=== PATIENT | female | born 1955 | race American Indian/Alaskan Native ===

== ENCOUNTER 2021-11-17 01:21 | Emergency (ER) | payer MEDICARE ==
[2021-11-17] MEDS ORDERED: ONDANSETRON 4 MG/2 ML INJ IV ONE ×2 (02:16→03:07)
[2021-11-17] MEDS ORDERED: fentaNYL 100 MCG/2 ML INJ IV ONE ×2 (02:16→03:07)
--- NOTE | 2021-11-17 02:23 | Emergency Department Report ---
HPI - General Chief Complaint: Fall Time Seen by Provider: 11/17/21 01:55 - HPI HPI: Room 22 The patient is a 66-year-old female complaining of pain after fall. The patient states Saturday evening she lost her balance and fell between her lawnmower and trailer while in her basement. Patient states that the lawnmower rolled on to her side and pinned her in this position on the ground. Patient states she attempted to call friends to help her out but no one answered. The patient states she fell asleep and this morning at 09: 30 she called 911. EMS came and helped the patient up. Patient states she did not think she had any pain so she wanted to go back to sleep. Patient states she now has pain along her right ribs when she breathes and pain in the right side of her abdomen and hip. Patient states prior to arrival to the emergency department she had 1 black tarry stool and developed nausea vomiting ED Past Medical Hx - Past Medical History Hx Hypertension: Yes Hx Arthritis: Yes Additional medical history: Lupus, kidney stones - Surgical History Past Surgical History?: Yes Additional Surgical History: right knee replacement, left hip replacement, right eye ball removal - has prosthetic, tonsillectomy - Family History Family history: no significant - Social History Smoking Status: Never Smoker Substance Use Type: None (Denies illicit drug use), Alcohol (Occasional) - Medications Home Medications: Home Medications Medication Instructions Recorded Confirmed Last Taken Type HYDROcodone/APAP 5-325 [Trappe 1 - 2 each PO Q6HR PRN #10 tablet 11/17/21 Unknown Rx 5/325] Promethazine [Phenergan] 25 mg PO Q6HR PRN #20 tab 11/17/21 Unknown Rx Promethazine [Phenergan] 25 mg MT Q6HR PRN #5 supp.rect 11/17/21 Unknown Rx ED Review of Systems ROS: Stated complaint: RT HIP & RIB PAIN Other details as noted in HPI Constitutional: no symptoms reported Eyes: denies: eye pain ENT: denies: throat pain Respiratory: no symptoms reported Cardiovascular: denies: chest pain Endocrine: no symptoms reported Gastrointestinal: abdominal pain, nausea, vomiting Musculoskeletal: arthralgia Neurological: headache Physical Exam - Physical Exam Vital Signs: Vital Signs 11/17/21 01:35 Temperature 98.1 F Pulse Rate 86 Respiratory 18 Rate Blood Pressure 176/89 O2 Sat by Pulse 100 Oximetry Physical Exam: GENERAL: The patient is well-developed well-nourished female lying on stretcher holding emesis bag. [] HEENT: Normocephalic. Atraumatic. Extraocular motions are intact. Patient has moist mucous membranes. NECK: Supple. Trachea midline CHEST/LUNGS: Clear to auscultation. There is no respiratory distress noted. HEART/CARDIOVASCULAR: Regular. There is no tachycardia. There is no gallop rub or murmur. ABDOMEN: Abdomen is soft, with discomfort to palpation of the right upper quadrant. There is no abdominal distention. SKIN: There is no rash. There is no edema. There is no diaphoresis. NEURO: The patient is awake, alert, and oriented. The patient is cooperative. The patient has no focal neurologic deficits. The patient has normal speech. GCS 15 MUSCULOSKELETAL: There is no evidence of acute injury. RECTAL: Light Brown stool, guaiac negative ED Course Vital Signs 11/17/21 01:35 Temperature 98.1 F Pulse Rate 86 Respiratory 18 Rate Blood Pressure 176/89 O2 Sat by Pulse 100 Oximetry ED Medical Decision Making - Lab Data Result diagrams: 11/17/21 02:34 11/17/21 02:34 - Radiology Data Radiology results: report reviewed (Right hip x-ray, CT head, CT cervical spine, CT abdomen pelvis, CT chest), image reviewed (Right hip x-ray, CT head, CT cervical spine, CT abdomen pelvis, CT chest) interpreted by me: Right hip x-ray-no acute fracture, no dislocation [facility] [address] [place] [address] XRay Report Signed Patient: JULIET MALCOLM MR#: [id number] : 1955 Acct:[id number] Age/Sex: 66 / F ADM Date: 11/17/21 Loc: ED Attending Dr: Ordering Physician: TOMMY GOODWIN MD Date of Service: 11/17/21 Procedure(s): XR hip 2-3V RT Accession Number(s): [id number] cc: TOMMY GOODWIN MD Fluoro Time In Minutes: RIGHT HIP 3 VIEW(S) INDICATION / CLINICAL INFORMATION: Pain after fall COMPARISON: None available. FINDINGS: BONES / JOINT(S): No acute fracture or subluxation. No significant arthritis. Prior left hip arthroplasty. No displaced fracture of the pelvis. SOFT TISSUES: No significant abnormality. ADDITIONAL FINDINGS: None. IMPRESSION: 1. No acute fracture of the right hip. Signer Name: Gregor Person II, MD Signed: 11/17/2021 3:32 AM Workstation Name: [id number] Transcribed By: BEULAH Dictated By: GREGOR PERSON II, MD Electronically Authenticated By: GREGOR PERSON II, MD Signed Date/Time: 11/17/21331 DD/ 0 TD/TT: Print Cancel [facility] [address] [place] [address] Cat Scan Report Signed Patient: JULIET MALCOLM MR#: [id number] : 1955 Acct:[id number] Age/Sex: 66 / F ADM Date: 11/17/21 Loc: ED Attending Dr: Ordering Physician: TOMMY GOODWIN MD Date of Service: 11/17/21 Procedure(s): CT head/brain wo con Accession Number(s): [id number] cc: TOMMY GOODWIN MD CT HEAD WITHOUT CONTRAST INDICATION / CLINICAL INFORMATION: Fall, possible L.O.C.. TECHNIQUE: CT head was performed without administration of intravenous contrast. All CT scans at this location are performed using CT dose reduction for ALARA by means of automated exposure contr ol. COMPARISON: None available. FINDINGS: CEREBRAL HEMISPHERES: Generalized atrophy and bilateral regions of periventricular white matter hypoattenuation compatible with microvascular ischemia are demonstrated. No midline shift. Basal cisterns patent. HEMORRHAGE: None. CEREBELLUM / BRAINSTEM: No significant abnormality. ORBITS: Right ocular prosthesis. Left orbit demonstrates no acute findings. SOFT TISSUES: No significant abnormality. SKULL: No significant abnormality. PARANASAL SINUSES / MASTOID AIR CELLS: Normal as visualized. ADDITIONAL FINDINGS: None. IMPRESSION: 1. No acute intracranial abnormality. Signer Name: Gregor Person II, MD Signed: 11/17/2021 5:01 AM Workstation Name: [id number] Transcribed By: BEULAH Dictated By: GREGOR PERSON II, MD Electronically Authenticated By: GREGOR PERSON II, MD Signed Date/Time: 11/17/21500 DD/ 9 TD/TT: [address] [address] Cat Scan Report Signed Patient: JULIET MALCOLM MR#: [id number] : 1955 Acct:[id number] Age/Sex: 66 / F ADM Date: 11/17/21 Loc: ED Attending Dr: Ordering Physician: TOMMY GOODWIN MD Date of Service: 11/17/21 Procedure(s): CT cervical spine wo con Accession Number(s): [id number] cc: TOMMY GOODWIN MD CT CERVICAL SPINE WITHOUT CONTRAST INDICATION / CLINICAL INFORMATION: Fall, possible L.O.C.. TECHNIQUE: Axial CT images were obtained through the cervical spine. Sagittal and coronal reformatted images were produced. All CT scans at this location are performed using CT dose red uction for ALARA by means of automated exposure control. COMPARISON: None available. FINDINGS: SKULL BASE: No significant abnormality of the skull base. CRANIOCERVICAL JUNCTION: No significant abnormality of the craniocervical junction. CERVICAL SPINE: Normal alignment with mild to moderate loss of intervertebral disc space throughout the cervical spine. No acute fracture. Mild central stenosis at C3-4 as a result of broad-based posterior disc osteophyte complex. SOFT TISSUES: No significant abnormality of soft tissues or musculature. THYROID: No significant abnormality. UPPER CHEST: No significant abnormality of the visualized chest. ADDITIONAL FINDINGS: None. IMPRESSION: 1. No evidence of acute osseous injury. Degenerative changes as detailed. No obvious severe central stenosis. Signer Name: Gregor Person II, MD Signed: 11/17/2021 5:03 AM Workstation Name: [id number] anscribed By: BEULAH Dictated By: GREGOR PERSON II, MD Electronically Authenticated By: GREGOR PRESON II, MD Signed Date/Time: 11/17/21502 DD/ 050 TD/TT: [address] [address] Cat Scan Report Signed Patient: JULIET MALCOLM MR#: [id number] : 1955 Acct:[id number] Age/Sex: 66 / F ADM Date: 11/17/21 Loc: ED Attending Dr: Ordering Physician: TOMMY GOODWIN MD Date of Service: 11/17/21 Procedure(s): CT chest w con Accession Number(s): [id number] cc: TOMMY GOODWIN MD CT CHEST WITH CONTRAST INDICATION / CLINICAL INFORMATION: Right rib pain after fall. TECHNIQUE: Axial CT images were obtained through the chest after 100 cc Omnipaque [address] scans at this location are performed using CT dose reduction for ALARA by means of automated exposure control. COMPARISON: CT abdomen and pelvis same date. FINDINGS: CHEST LOWER NECK: Soft tissues and musculature of the lower neck demonstrate no significant abnormality. Mild nodular enlargement of the right thyroid lobe. THORACIC AORTA: No significant abnormality. PULMONARY ARTERY:No significant abnormality. HEART: No significant abnormality. CORONARY ARTERY CALCIFICATION: Present -- Mild. MEDIASTINUM / PETE: No significant abnormality. ESOPHAGUS: No significant abnormality. LYMPH NODES: No adenopathy demonstrated within the axilla, pete, or mediastinum. Partially calcified right hilar and right paratracheal lymph nodes. LUNGS: No acute air space or interstitial disease. PLEURA: No pleural effusion. No pneumothorax. TH ORACIC SOFT TISSUES: No significant abnormality of the chest wall or upper thoracic musculature. OSSEOUS STRUCTURES: Moderate right glenohumeral joint degenerative changes. No acute fractures involving bilateral shoulder girdles, rib cage, thoracic spine, or sternum. UPPER ABDOMEN: Please see comparison study for findings. ADDITIONAL CHEST FINDINGS: None. IMPRESSION: 1. No significant abnormality. Signer Name: Gregor Person II, MD Signed: 11/17/2021 5:27 AM Workstation Name: [id number] Transcribed By: BEULAH Dictated By: GREGOR PERSON II, MD Electronically Authenticated By: GREGOR PERSON II, MD Signed Date/Time: 11/17/21526 DD/ 0 TD/TT: [facility] [address] [place] [address] Cat Scan Report Signed Patient: JULIET MALCOLM MR#: [id number] : 1955 Acct:[id number] Age/Sex: 66 / F ADM Date: 11/17/21 Loc: ED Attending Dr: Ordering Physician: TOMMY GOODWIN MD Date of Service: 11/17/21 Procedure(s): CT abdomen pelvis w con Accession Number(s): [id number] cc: TOMMY GOODWIN MD CT ABDOMEN AND PELVIS WITH CONTRAST INDICATION / CLINICAL INFORMATION: Right-sided abdominal pain after fall. TECHNIQUE: Axial CT images were obtained through the abdomen and pelvis after 100 cc Omnipaque [address] scans at this location are performed using CT dose reduction for ALARA by means of automated exposure control. COMPARISON: CT chest same date. FINDINGS: LOWER CHEST: Please reference the comparison study. Findings within the chest. LIVER: No focal lesion. No acute findings. GALLBLADDER / BILE DUCTS: No significant abnormality. Biliary ducts grossly unremarkable. SPLEEN: No significant abnormality. PANCREAS: No significant abnormality. ADRENALS: Minimal adrenal nodularity and/or hyperplasia. KIDNEYS/URETERS: No stones or hydronephrosis. No solid renal lesion. STOMACH / DUODENUM / SMALL BOWEL: The stomach, duodenum, and small bowel demonstrate no significant abnormality. No specific abnormality of the mesentery demonstrated. COLON: Diverticulosis without acute inflammation. APPENDIX: No significant abnormality. PERITONEUM: No free air or free fluid are present within the abdomen or pelvis. LYMPH NODES: No significant adenopathy. AORTA / ARTERIES: No significant abnormality. IVC / VEINS: No significant abnormality. URINARY BLADDER: No significant abnormality. REPRODUCTIVE ORGANS: Partially calcified uterine fibroids. ADDITIONAL ABDOMINAL/PELVIC FINDINGS: None. SKELETAL SYSTEM: Lumbar degenerative changes without evidence of superimposed acute fracture. Osseous structures of the pelvis and bilateral hips appear intact. Prior left hip arthroplasty. Moderate central stenosis L3-4 L4-5 IMPRESSION: 1. No evidence of acute traumatic injury. Nonacute findings as detailed. Signer Name: Gregor Person II, MD Signed: 11/17/2021 5:28 AM Workstation Name: [id number] Transcribed By: BEULAH Dictated By: GREGOR PERSON II, MD Electronically Authenticated By: GREGOR PERSON II, MD Signed Date/Time: 11/17/21527 DD/ 3 TD/TT: - Differential Diagnosis Closed head injury, GI bleed, rhabdomyolysis, hepatic injury, Critical care attestation.: If time is entered above; I have spent that time in minutes in the direct care of this critically ill patient, excluding procedure time. ED Disposition Clinical Impression: Fall, Contusion of rib on right side, Abdominal contusion, Closed head injury, Cervical strain, acute Disposition: 01 HOME / SELF CARE / HOMELESS Is pt being admited?: No Does the pt Need Aspirin: No Condition: Stable Instructions: Contusion, [id number] Additional Instructions: Return to the emergency department should you develop worsening symptoms, inability to tolerate food or liquids, high fever or any other concerns Prescriptions: HYDROcodone/APAP 5-325 [Trappe 5/325] 1 - 2 each PO Q6HR PRN #10 tablet PRN Reason: Pain Promethazine [Phenergan] 25 mg PO Q6HR PRN #20 tab PRN Reason: Nausea Promethazine [Phenergan] 25 mg MT Q6HR PRN #5 supp.rect PRN Reason: Vomiting Referrals: CELIA GREEN MD [Staff Physician] - 3-5 Days Time of Disposition: 05:42
[2021-11-17 03:13] LABS: Basophils # (Auto) 0.1 K/mm3 (0.0-0.1); Basophils % (Auto) 1.1 % (0.0-1.8); Eosinophils % (Auto) 0.2 % (0.0-4.3); Hematocrit 36.6 % (30.3-42.9); Lymphocytes # (Auto) 0.9 K/mm3 (1.2-5.4); Lymphocytes % (Auto) 11.9 % (13.4-35.0); Mean Corpuscular HGB Conc 33 % (30-34); Mean Corpuscular Volume 85 fl (79-97); Monocytes # (Auto) 0.5 K/mm3 (0.0-0.8); Monocytes % (Auto) 5.9 % (0.0-7.3); Platelet Count 264 K/mm3 (140-440); Red Blood Count 4.32 M/mm3 (3.65-5.03); Red Cell Distribution Width 15.4 % (13.2-15.2)
[2021-11-17 03:27] LABS: BUN/Creatinine Ratio 11; Blood Urea Nitrogen 9 mg/dL (7-17); Calcium 10.3 mg/dL (8.4-10.2); Hemolysis Index 5
[2021-11-17 03:36] LABS: INR 0.9 (0.87-1.13)
[2021-11-17 03:37] LABS: Partial Thromboplastin Time 32.6 Sec. (24.2-36.6)
--- NOTE | 2021-11-17 03:37 | XRay Report ---
RIGHT HIP 3 VIEW(S) INDICATION / CLINICAL INFORMATION: Pain after fall COMPARISON: None available. FINDINGS: BONES / JOINT(S): No acute fracture or subluxation. No significant arthritis. Prior left hip arthropl asty. No displaced fracture of the pelvis. SOFT TISSUES: No significant abnormality. ADDITIONAL FINDINGS: None. IMPRESSION: 1. No acute fracture of the right hip. Signer Name: Francis Conway II, MD Signed: 11/17/2021 3:32 AM Workstation Name: [id number]
--- NOTE | 2021-11-17 05:05 | Cat Scan Report ---
CT HEAD WITHOUT CONTRAST INDICATION / CLINICAL INFORMATION: Fall, possible L.O.C.. TECHNIQUE: CT head was performed without administration of intravenous contrast. All CT scans at this location are performed using CT dose reduction for ALARA by means of automated exposure control. COMPARISON: None available. FINDINGS: CEREBRAL HEMISPHERES: Generalized atrophy and bilateral regions of periventricular white matter hypoa ttenuation compatible with microvascular ischemia are demonstrated. No midline shift. Basal cisterns patent. HEMORRHAGE: None. CEREBELLUM / BRAINSTEM: No significant abnormality. ORBITS: Right ocular prosthesis. Left orbit demonstrates no acute findings. SOFT TISSUES: No significant abnormality. SKULL: No significant abnormality. PARANASAL SINUSES / MASTOID AIR CELLS: Normal as visualized. ADDITIONAL FINDINGS: None. IMPRESSION: 1. No acute intracranial abnormality. Signer Name: Francis Conway II, MD Signed: 11/17/2021 5:01 AM Workstation Name: [id number]
--- NOTE | 2021-11-17 05:07 | Cat Scan Report ---
CT CERVICAL SPINE WITHOUT CONTRAST INDICATION / CLINICAL INFORMATION: Fall, possible L.O.C.. TECHNIQUE: Axial CT images were obtained through the cervical spine. Sagittal and coronal reformatted images were produced. All CT scans at this location are performed using CT dose reduction for ALARA by means of automated exposure control. COMPARISON: None available. FINDINGS: SKULL BASE: No significant abnormality of the skull base. CRANIOCERVICAL JUNCTION: No significant abnormality of the craniocervical junction. CERVICAL SPINE: Normal alignment with mild to moderate loss of intervertebral disc space throughout t he cervical spine. No acute fracture. Mild central stenosis at C3-4 as a result of broad-based license examiner ior disc osteophyte complex. SOFT TISSUES: No significant abnormality of soft tissues or musculature. THYROID: No significant abnormality. UPPER CHEST: No significant abnormality of the visualized chest. ADDITIONAL FINDINGS: None. IMPRESSION: 1. No evidence of acute osseous injury. Degenerative changes as detailed. No obvious severe central s tenosis. Signer Name: Francis Conway II, MD Signed: 11/17/2021 5:03 AM Workstation Name: [id number]
--- NOTE | 2021-11-17 05:31 | Cat Scan Report ---
CT CHEST WITH CONTRAST INDICATION / CLINICAL INFORMATION: Right rib pain after fall. TECHNIQUE: Axial CT images were obtained through the chest after 100 cc Omnipaque [address] l [address] scans at this location are performed using CT dose reduction for ALARA by means of automated exp osure control. COMPARISON: CT abdomen and pelvis same date. FINDINGS: CHEST LOWER NECK: Soft tissues and musculature of the lower neck demonstrate no significant abnormality. Mi ld nodular enlargement of the right thyroid lobe. THORACIC AORTA: No significant abnormality. PULMONARY ARTERY:No significant abnormality. HEART: No significant abnormality. CORONARY ARTERY CALCIFICATION: Present -- Mild. MEDIASTINUM / PRINCESS: No significant abnormality. ESOPHAGUS: No significant abnormality. LYMPH NODES: No adenopathy demonstrated within the axilla, princess, or mediastinum. Partially calcified right hilar and right paratracheal lymph nodes. LUNGS: No acute air space or interstitial disease. PLEURA: No pleural effusion. No pneumothorax. THORACIC SOFT TISSUES: No significant abnormality of the chest wall or upper thoracic musculature. OSSEOUS STRUCTURES: Moderate right glenohumeral joint degenerative changes. No acute fractures involv ing bilateral shoulder girdles, rib cage, thoracic spine, or sternum. UPPER ABDOMEN: Please see comparison study for findings. ADDITIONAL CHEST FINDINGS: None. IMPRESSION: 1. No significant abnormality. Signer Name: Francis Conway II, MD Signed: 11/17/2021 5:27 AM Workstation Name: [id number]
--- NOTE | 2021-11-17 05:32 | Cat Scan Report ---
CT ABDOMEN AND PELVIS WITH CONTRAST INDICATION / CLINICAL INFORMATION: Right-sided abdominal pain after fall. TECHNIQUE: Axial CT images were obtained through the abdomen and pelvis after 100 cc Omnipaque [address] scans at this location are performed using CT dose reduction for ALARA by means of automated exposure control. COMPARISON: CT chest same date. FINDINGS: LOWER CHEST: Please reference the comparison study. Findings within the chest. LIVER: No focal lesion. No acute findings. GALLBLADDER / BILE DUCTS: No significant abnormality. Biliary ducts grossly unremarkable. SPLEEN: No significant abnormality. PANCREAS: No significant abnormality. ADRENALS: Minimal adrenal nodularity and/or hyperplasia. KIDNEYS/URETERS: No stones or hydronephrosis. No solid renal lesion. STOMACH / DUODENUM / SMALL BOWEL: The stomach, duodenum, and small bowel demonstrate no significant a bnormality. No specific abnormality of the mesentery demonstrated. COLON: Diverticulosis without acute inflammation. APPENDIX: No significant abnormality. PERITONEUM: No free air or free fluid are present within the abdomen or pelvis. LYMPH NODES: No significant adenopathy. AORTA / ARTERIES: No significant abnormality. IVC / VEINS: No significant abnormality. URINARY BLADDER: No significant abnormality. REPRODUCTIVE ORGANS: Partially calcified uterine fibroids. ADDITIONAL ABDOMINAL/PELVIC FINDINGS: None. SKELETAL SYSTEM: Lumbar degenerative changes without evidence of superimposed acute fracture. Osseous structures of the pelvis and bilateral hips appear intact. Prior left hip arthroplasty. Moderate lacie tral stenosis L3-4 L4-5 IMPRESSION: 1. No evidence of acute traumatic injury. Nonacute findings as detailed. Signer Name: Francis Conway II, MD Signed: 11/17/2021 5:28 AM Workstation Name: [id number]
[2021-11-17 06:49] VITALS: BP 160/70
== END 2021-11-17 06:54 | disposition home or self-care (01) ==
LOC: ED 01:21
DX: S20.211A Contusion of right front wall of thorax, initial encounter (principal); S30.1XXA Contusion of abdominal wall, initial encounter; S09.90XA Unspecified injury of head, initial encounter; S16.1XXA Strain of muscle, fascia and tendon at neck level, initial encounter; I10 Essential (primary) hypertension; M19.90 Unspecified osteoarthritis, unspecified site; W19.XXXA Unspecified fall, initial encounter; Y93.89 Activity, other specified; Y92.89 Other specified places as the place of occurrence of the external cause; Y99.8 Other external cause status
CPT/HCPCS: 36415; 70450; 71260; 72125; 73502; 74177; 80048; 82270; 82550; 85025; 85610; 85730; 86850; 86900; 86901; 96374; 96375; 96376; 99284; J2405; J3010; Q9967

== ENCOUNTER 2021-11-17 08:44 | Emergency (ER) | payer MEDICARE | END 2021-11-17 19:00 | disposition left against medical advice (07) | LOC: ED 08:44 | DX: R42 Dizziness and giddiness (principal); R11.10 Vomiting, unspecified; Z53.21 Procedure and treatment not carried out due to patient leaving prior to being seen by health care provider ==